=== PATIENT | male | born 1960 | race Caucasian/White ===

== ENCOUNTER 2016-10-08 12:09 | Emergency (ER) | payer SELFPAY ==
[~2016-10-08] VITALS: Ht 165.1 cm; Wt 96.0 kg
[2016-10-08 12:11] VITALS: BP 169/91
== END 2016-10-08 12:44 | disposition left against medical advice (07) ==
LOC: ED 12:40
DX: M25.569 Pain in unspecified knee (principal); M54.9 Dorsalgia, unspecified; Z53.21 Procedure and treatment not carried out due to patient leaving prior to being seen by health care provider